=== PATIENT | male | born 1945 | race Caucasian/White ===

== ENCOUNTER 2022-03-18 12:59 | Inpatient (IN) | payer MEDICARE, OTHER ==
[~2022-03-18] VITALS: Ht 180.3 cm; Wt 83.9 kg
[2022-03-18] MEDS ORDERED: TESTOSTERO200 MG/1 M IM (13:13)
[2022-03-18] MEDS ORDERED: PRIMIDONE250 MG PO (13:13)
[2022-03-18] MEDS ORDERED: LASIX20 MG PO (13:14)
[2022-03-18 13:30] LABS: BASOPHIL 0.5 % (0-2); EOSINOPHIL 1.6 % (0-7); HCT 45.9 % (42.0-52.0); HGB 15.7 g/dl (13.2-18.0); LYMPHOCYTE 15.9 % (15-48); MCH 33.1 pg (25.0-31.0); MCHC 34.2 g/dL (32.0-36.0); MCV 96.6 fL (78.0-100.0); MONOCYTE 5.8 % (0-12); MPV 9.7 fL (6.0-9.5); NEUTROPHIL 75.6 % (41-80); NRBC 0; PLT 166 K/uL (150-400); RBC 4.75 M/uL (4.70-6.00); WBC 10.6 K/uL (4.0-10.5)
[2022-03-18 13:59] LABS: ALBUMIN 3.6 g/dL (3.4-5.0); BILIRUBIN - TOTAL 0.4 mg/dL (0.2-1.0); BUN/CREAT RATIO (CALC) 18.9 RATIO; CREATININE 1.06 mg/dL (0.67-1.17); GLOBULIN (CALCULATION) 3.7 g/dL; POTASSIUM 4.1 mmol/L (3.5-5.1); TOTAL PROTEIN 7.3 g/dL (6.4-8.2)
[2022-03-18 14:12] LABS: CORONAVIRUS 2019 SARS-COV-2 NEGATIVE (NEGATIVE); INFLUENZA A NAA NEGATIVE (NEGATIVE)
[2022-03-18 14:22] LABS: BILIRUBIN NEGATIVE (NEGATIVE); BLOOD NEGATIVE Ery/uL (NEGATIVE); CLARITY CLEAR (CLEAR); COLOR YELLOW (YELLOW); GLUCOSE (U) NORMAL (NORMAL); LEUKOCYTES NEGATIVE Leu/uL (NEGATIVE); NITRITE NEGATIVE (NEGATIVE); PROTEIN NEGATIVE (NEGATIVE); UROBILINOGEN 0.2 mg/dL (0.2-1.0)
[2022-03-18 19:37] LABS: PHOSPHORUS 3.3 mg/dL (2.6-4.7)
[2022-03-19] MEDS ORDERED: PULMICORT0.5 MG/2 M NEB (03:14)
[2022-03-19] MEDS ORDERED: PERFOROMIS20 MCG/2 M INH (03:16)
[2022-03-19] MEDS ORDERED: YUPELRI175 MCG/3 INH (03:17)
[2022-03-19] MEDS ORDERED: VENTOLIN (2.5 MG/3 M INH (03:17)
[2022-03-19] MEDS ORDERED: VIBRAMYCIN100 M1 PO (03:20)
[2022-03-19 06:40] LABS: BASOPHIL 0.2 % (0-2); EOSINOPHIL 0.4 % (0-7); HCT 44.7 % (42.0-52.0); HGB 15.2 g/dl (13.2-18.0); LYMPHOCYTE 14.1 % (15-48); MCH 32.8 pg (25.0-31.0); MCV 96.5 fL (78.0-100.0); MONOCYTE 7.5 % (0-12); MPV 9.7 fL (6.0-9.5); NRBC 0; PLT 172 K/uL (150-400); RBC 4.63 M/uL (4.70-6.00); RDW 13.1 % (11.5-14.0); WBC 13.1 K/uL (4.0-10.5)
[2022-03-19 07:03] LABS: ALBUMIN 3.5 g/dL (3.4-5.0); BILIRUBIN - TOTAL 0.4 mg/dL (0.2-1.0); BUN/CREAT RATIO (CALC) 18.7 RATIO; CREATININE 1.07 mg/dL (0.67-1.17); GLOBULIN (CALCULATION) 3.3 g/dL; POTASSIUM 4.1 mmol/L (3.5-5.1); TOTAL PROTEIN 6.8 g/dL (6.4-8.2)
[2022-03-22] MEDS ORDERED: AZITHROMYCIN250 MG PO (09:57)
[2022-03-22] MEDS ORDERED: CEFDINIR300 MG PO (09:57)
[2022-03-22] MEDS ORDERED: PREDNISONE 20MG20 MG PO (09:58)
--- NOTE | 2022-03-22 10:08 | NUR ---
03/22 Mr. Walton lives at home with his spouse. He is independent in the home and community. He has a C-PAP. - PCP = Dr. Christina. - A referral was made to [facility] for 02 at 2 L per patient choice. HH was not indicated.
== END 2022-03-22 11:28 | disposition home or self-care (01) | DRG 871 ==
LOC: FER 12:59 → FMS 17:19
PROVIDERS: Nurse Practitioner; Physician Assistant; ADMIT Internal Medicine
DX: A41.9 Sepsis, unspecified organism (principal); J18.9 Pneumonia, unspecified organism; J96.01 Acute respiratory failure with hypoxia; I38 Endocarditis, valve unspecified; R65.20 Severe sepsis without septic shock; Z20.822 Contact with and (suspected) exposure to COVID-19; J43.9 Emphysema, unspecified; I50.9 Heart failure, unspecified; Z79.899 Other long term (current) drug therapy; Z98.890 Other specified postprocedural states; Z87.891 Personal history of nicotine dependence; Z80.1 Family history of malignant neoplasm of trachea, bronchus and lung; Z82.49 Family history of ischemic heart disease and other diseases of the circulatory system
CPT/HCPCS: 36415; 71045; 71275; 80053; 81003; 83605; 83615; 83735; 83880; 84100; 84145; 84484; 85025; 85379; 87040; 93005; 94010; 94640; 94664; 94760; 94762; G0378; J0456; J0696; J1650; J2920; J2930; J7050; J7512; Q9967; U0002